=== PATIENT | male | born 2000 | race Asian ===

== ENCOUNTER 2019-10-01 07:51 | Emergency (ER) | payer BC ==
--- NOTE | 2019-10-01 08:32 | ED ---
Psychiatric Complaint - HPI Summary HPI Summary: This patient is a 19-year-old male presenting to the ED with multiple complaints. Patient states "I'm unwell." He states he took an antibiotic for an ear infection, ciprofloxacin, 2 months ago and has been having side effects since that time. He believes he has an aortic aneurysm as well as damage to his heart. He is also endorsing joint pains and aches and states this is due to the ciprofloxacin. He states intermittently he has abdominal pain as well as his throat tightening. He does have a mental health history but states this is not his anxiety or his depression. Patient has been seen in the emergency room twice and has had a Holter monitor due to his severe concern over damage to his heart from cipro. Continues to discuss his health concerns and states he needs to be worked up for his concerns for side effects of the cipro, but then states does not want to incur any costs. He had a holter monitor placed last week, does not know results. - History Of Current Complaint Chief Complaint: EDMentalHealth Time Seen by Provider: 10/01/19 08:03 Hx Obtained From: Patient Onset/Duration: Sudden Onset Timing: Constant Severity Initially: Mild Severity Currently: None Aggravating Factor(s): Recent Stress Alleviating Factor(s): Nothing Associated Signs And Symptoms: Positive: Confused, Paranoid Behavior, Sleep Disturbance Related History: Positive For: Prior Psychiatric Issues - Risk Factor(s) Completed Suicide Risk Factors: Male - Allergies/Home Medications Allergies/Adverse Reactions: Allergies Allergy/AdvReac Type Severity Reaction Status Date / Time ciprofloxacin [From Cipro] Allergy See Comment Verified 10/01/19 08:06 PMH/Surg Hx/FS Hx/Imm Hx Previously Healthy: Yes - Immunization History Hx Pertussis Vaccination: No Immunizations Up to Date: Yes Infectious Disease History: No Infectious Disease History: Denies: Traveled Outside the [place] in Last 30 Days - Social History Occupation: Unemployed, Student Lives: Alone Alcohol Use: None Hx Substance Use: No Substance Use Type: Reports: None Hx Tobacco Use: No Smoking Status (MU): Never Smoked Tobacco Review of Systems Negative: Fever, Chills, Fatigue, Skin Diaphoresis Negative: Palpitations, Chest Pain Negative: Shortness Of Breath, Cough Genitourinary: Negative Positive: no symptoms reported, see HPI Negative: Arthralgia, Myalgia Skin: Negative All Other Systems Reviewed And Are Negative: Yes Physical Exam Triage Information Reviewed: Yes Vital Signs On Initial Exam: Initial Vitals Temp Pulse Resp BP Pulse Ox 98.5 F 82 16 115/87 97 10/01/19 07:54 10/01/19 07:54 10/01/19 07:54 10/01/19 07:54 10/01/19 07:54 Vital Signs Reviewed: Yes Appearance: Positive: Well-Appearing, Well-Nourished Skin: Positive: Skin Color Reflects Adequate Perfusion Head/Face: Positive: Normal Head/Face Inspection Eyes: Positive: EOMI, JAXON, Conjunctiva Clear Neck: Positive: Supple, Nontender, No Lymphadenopathy Respiratory/Lung Sounds: Positive: Clear to Auscultation, Breath Sounds Present Cardiovascular: Positive: RRR, Pulses are Symmetrical in both Upper and Lower Extremities Musculoskeletal: Positive: Normal, Strength/ROM Intact Neurological: Positive: Alert, Oriented to Person Place, Time Psychiatric: Positive: Anxious AVPU Assessment: Alert Procedures - Sedation Patient Received Moderate/Deep Sedation with Procedure: No Diagnostics - Vital Signs Vital Signs Temp Pulse Resp BP Pulse Ox 10/01/19 07:54 98.5 F 82 16 115/87 97 - Laboratory Result Diagrams: 10/01/19 08:48 10/01/19 08:48 Lab Statement: Any lab studies that have been ordered have been reviewed, and results considered in the medical decision making process. Course/Dx - Course Course Of Treatment: Patient states he called police this morning prior to arrival d/t this concern. Discussed with the patient at length exceeding 45 minutes regarding his sxs. Attempted to assure this patient his sxs seemed to be more related to anxiety about his health vs. cipro. He has had 2 workups since taking the cipro, both of which were negative for any findings. Labs obtained as pt wanted HIV testing. All labs negative for any acute findings. Attempted to reassure patient again, but he states he would like to f/u with the director regulatory agency regarding the "damage to his heart." Pt did have a mental health eval d/t his concerns over this sxs. Will f/u as outpatient. (see separate note). - Differential Dx/Clinical Impression Provider Diagnosis: Anxiety about health Discharge ED - Sign-Out/Discharge Documenting (check all that apply): Patient Departure - Discharge Plan Condition: Good Disposition: HOME Referrals: Mila Cutler NP [Primary Care Provider] - - Billing Disposition and Condition Condition: GOOD Disposition: Home
[2019-10-01 09:04] LABS: ABS Basophils 0.1 10^3/ul (0-0.2); ABS Eosinophils 0.1 10^3/ul (0-0.6); ABS Lymphocytes 2.3 10^3/ul (1.0-4.8); ABS Monocytes 0.5 10^3/ul (0-0.8); ABS Neutrophils 3.9 10^3/ul (1.5-7.7); Eosinophil % 1.5 %; Hematocrit 47 % (42-52); Hemoglobin 16.4 g/dL (14.0-18.0); Mean Corpuscular HGB Conc 35 g/dL (31-36); Mean Corpuscular Hemoglobin 30 pg (27-31); Mean Corpuscular Volume 85 fL (80-94); Mean Platelet Volume 10.3 fL (7.4-10.4); Platelet Count 169 10^3/uL (150-450); Red Blood Count 5.47 10^6 /uL (4.18-5.48); Red Cell Distribution Width 14 % (10-15); White Blood Count 6.8 10^3/uL (3.5-10.8)
[2019-10-01 09:20] LABS: Albumin/Globulin Ratio 1.9 (1-3); BUN/Creatinine Ratio 15.1 (8-20); Calcium 9.4 mg/dL (8.6-10.3); EGFR African American 135.8 (>60); EGFR Non-African American 112.3 (>60); Globulin 2.7 g/dL (2-4); Potassium 3.8 mmol/L (3.5-5.0); Total Bilirubin 0.8 mg/dL (0.2-1.0); Total Protein 7.7 g/dL (6.4-8.9)
[2019-10-01 09:21] LABS: Urine Appearance Clear; Urine Bilirubin Negative (Negative); Urine Blood Negative (Negative); Urine Color Yellow; Urine Glucose Negative (Negative); Urine Ketones Trace (Negative); Urine Nitrite Negative (Negative); Urine Protein Negative (Negative); Urine Specific Gravity 1.014 (1.010-1.030); Urine Urobilinogen Negative (Negative)
[2019-10-01 10:24] LABS: HIV 4th Generation Nonreactive (Nonreactive)
[2019-10-01 11:18] VITALS: BP 124/74
== END 2019-10-01 11:44 | disposition home or self-care (01) ==
LOC: ED 07:51
DX: F41.9 Anxiety disorder, unspecified (principal); G47.9 Sleep disorder, unspecified; Z88.1 Allergy status to other antibiotic agents
CPT/HCPCS: 36415; 80053; 81003; 85025; 87389; 99284